=== PATIENT | female | born 1995 | race Hispanic/Latino ===

== ENCOUNTER 2016-12-26 17:30 | Emergency (ER) | payer OTHER ==
[~2016-12-26] VITALS: Ht 160 cm; Wt 73.0 kg
[2016-12-26] MEDS ORDERED: ASPI1TAB PO (17:56)
[2016-12-26] MEDS ORDERED: PREN1TAB11 PO (17:56)
[2016-12-26] MEDS ORDERED: PROG100C PO (17:56)
[2016-12-26 18:33] LABS: BASO % 0.4 % (0.0-1.0); EOS # 0.2 K/mm3 (0.0-0.50); EOS % 1.6 % (0.0-3.0); LARGE UNSTAINED CELL # 0.1 K/mm3 (0.0-0.4); LARGE UNSTAINED CELL % 0.9 % (0.0-4.0); LYMPH # 2.2 K/mm3 (1.5-6.5); LYMPH % 18.5 % (24.0-44.0); MEAN CORPUSCULAR HEMOGLOBIN 29.6 pg (27.0-33.0); MEAN CORPUSCULAR HGB CONC 34.6 g/dl (32.0-36.5); MEAN CORPUSCULAR VOLUME 85.6 fl (80.0-96.0); MONO # 0.7 K/mm3 (0.0-0.8); MONO % 5.7 % (0.0-5.0); NEUTROPHILS # 8.4 K/mm3 (1.8-7.7); PLATELET COUNT, AUTOMATED 341 k/mm3 (150-450); RED CELL DISTRIBUTION WIDTH 12.6 % (11.5-14.5); WHITE BLOOD COUNT 11.4 K/mm3 (4.0-10.0)
--- NOTE | 2016-12-26 18:44 | ED PDOC ---
Provider Note AT THIS TIME, PT WAITING TO BE SEEN BY PROVIDER, BUT ORDERS WERE PLACED FOR LABS AND ULTRASOUND. PT STATED SHE WAS TOLD NOT TO HAVE SEX AFTER THE I.U.I. PROCEDURE SHE HAD ON 12/16/16. CALLED AND SPOKE WITH DR. HAM (ON-CALL FOR UNASSIGNED OB) AND WAS ADVISED A TRANSVAGINAL ULTRASOUND WAS APPROPRIATE IN THIS CASE WITH HER SYMPTOMS AND WOULD NOT HARM . LIBRADO DRAKE PA-C Dec 26, 2016 18:44
[2016-12-26 19:04] LABS: ANION GAP 9 MEQ/L (8-16); BLOOD UREA NITROGEN 13 MG/DL (7-18); CALCIUM LEVEL 8.9 MG/DL (8.5-10.1); CARBON DIOXIDE LEVEL 24 MEQ/L (21-32); CHLORIDE LEVEL 107 MEQ/L (98-107); CREATININE FOR GFR 0.63 MG/DL (0.55-1.02); GLOMERULAR FILTRATION RATE > 60.0 (>60); GLUCOSE, FASTING 103 MG/DL (70-105); HCG, SERUM QUANTITATIVE 55 MIU/ML; POTASSIUM SERUM 3.9 MEQ/L (3.5-5.1); SODIUM LEVEL 140 MEQ/L (136-145)
--- NOTE | 2016-12-26 19:20 | REPUSA ---
Clinical history: Pain in the left adnexa. Findings: Real-time transabdominal and transvaginal ultrasound images of the pelvis were obtained. An anteverted uterus is noted, measuring 8.5 x 4.1 x 5.4 cm. The uterus demonstrates normal echotexture and echogenicity. The endometrial stripe measures 14 mm. There is no evidence of an intrauterine ges tation at this time. The right ovary measures 4.2 x 2.5 x 2.9 cm. There is a complex right ovarian cy st measuring 2.4 x 2.1 x 1.9 cm. The left ovary measures 2.7 x 2.8 x 1.7 cm. No adnexal masses are se en. Color Doppler flow is seen within both ovaries. There is a small on of free fluid in the cul-de-s ac. Impression: Echogenic, thickened endometrial stripe, without evidence of an intrauterine gestation. C omplex, likely hemorrhagic right ovarian cyst, which could represent a corpus luteum cyst. Small amou nt of free fluid in the cul-de-sac. Considering these findings, differential diagnosis includes early , missed , or even possibly ectopic in the appropriate clinical setting. Follow-up with serial serum beta hCG levels is recommended for further evaluation.
[2016-12-26 19:52] VITALS: BP 128/67
== END 2016-12-26 19:54 | disposition home or self-care (01) ==
LOC: M ED 17:30
DX: O26.891 Other specified pregnancy related conditions, first trimester (principal); R10.2 Pelvic and perineal pain; Z79.82 Long term (current) use of aspirin; Z91.09 Other allergy status, other than to drugs and biological substances